=== PATIENT | male | born 1950 | race Caucasian/White ===

== ENCOUNTER → 2016-05-10 | Day surgery (SDC) | payer MEDICARE ==
[~2016-05-10] MED LIST: ARTIFICIAL TEARS OPTH OINT 3.5 APPLIC/3.5 GM TUBO ONE; BACITRACIN TOP OINT 15 GM TUBE ONE; BALANCED SALT SOLN OPHT IRRIG 15 ML BTL ONE; LACTATED RINGER'S 1000 ML INJ 1,000 ML ONE; LIDOCAINE 1%/EPINEPHrine 1:100,000 SOLN 20 ML VIAL ONE; ONDANSETRON HCL 4 MG/2 ML VIAL IV PUSH ONE; PROPOFOL 200 MG/20 ML AMP IV ONE; ceFAZolin 2 GM PREMIX 50 ML ONE
--- NOTE | 2016-05-12 08:55 | MP ---
cc: WESLEY DYER M.D. DATE OF SURGERY 05/10/2016 PREOPERATIVE DIAGNOSIS Basal cell carcinoma right nasal ala. POSTOPERATIVE DIAGNOSIS Basal cell carcinoma right nasal ala. OPERATION Excision right side nose ala basal cell carcinoma with frozen section and full-thickness skin graft from the right neck 1.5 x 1.2 cm lesion excision. SURGEON Dr. Dyer ANESTHESIA General. INDICATIONS A 65-year-old white male with a biopsy-proven basal cell carcinoma of the invasive type on the right nasal ala approximately 3-mm from the nasal border. The patient was referred to pr for further care by the paralegal. He underwent detailed explanation of the excision and frozen section process and reconstruction either with a full-thickness skin graft or a local rotation flap was discussed and the patient has elected to stay with the full-thickness skin graft for now. He understands the possibility of the general risks and complications including failure of the skin graft and possible need for further reconstruction and some asymmetry and deformity of the operated site. PROCEDURE The patient was brought to the operating room, was given supine position. Anesthesia was started. Prep and drape was done. IV antibiotic had been given. Time-out was called and completed. Preoperative markings were reinforced and local anesthetic lidocaine 1% with epi was used under the lesion itself and also in the postauricular upper neck area for clean matching thickness skin. The lesion was excised just above the cartilage level and was suture marked superior, sent for frozen section. Hemostasis was completed including ligating small arterial blood vessel on the nose. The full-thickness graft was harvested from the right side neck; it was defatted and also after, matching to the incision site defect, the excess portion was marked and de-epithelialized and this was folded over to provide additional thickness towards the lower posterior aspect of the defect to match the anatomy as closely as possible. The graft was sutured in place with 5-0 Prolene interrupted sutures. The donor site was closed with 4-0 Vicryl internal sutures. The frozen section report issued indicated residual basal cell carcinoma in the middle of the specimen and clear margins. The areas were cleaned, dried and sterile dressing was applied. The patient remained stable through the procedure. Intraoperative blood loss less than 5 cc. No complications. signed, not fully reviewed Wesley Dyer MD VM/SSB /5:01 PM /8:45 AM MTDD
== END | disposition home or self-care (01) ==
LOC: ESDC 07:38
PROVIDERS: ATTEND Plastic Surgery
DX: C44.311 Basal cell carcinoma of skin of nose (principal)
CPT/HCPCS: 00300; 11642; 15260; 88305; 88331; J0690; J2405; J3010; J7120